=== PATIENT | male | born 1980 ===

== ENCOUNTER 2018-05-02 21:00 | Emergency (ER) | payer SELFPAY ==
[2018-05-02] MEDS ORDERED: NALOXONE HCL 0.4 MG/ML INJ ONE (21:13)
[2018-05-02 21:22] LABS: PLATELET COUNT 312 10^3/uL (150-400)
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
[2018-05-02] MEDS ORDERED: NS 1,000 ML IV ONE (21:49)
[2018-05-02] MEDS ORDERED: NALOXONE HCL 0.4 MG/ML INJ IVP ONE (21:50)
[2018-05-03 20:11] VITALS: BP 110/74
== END 2018-05-03 05:50 | disposition home or self-care (01) ==
DX: F19.10 Other psychoactive substance abuse, uncomplicated (principal); E86.9 Volume depletion, unspecified; F17.200 Nicotine dependence, unspecified, uncomplicated; J45.909 Unspecified asthma, uncomplicated
CPT/HCPCS: 96374; G0480; J2310